=== PATIENT | male | born 1990 | race Caucasian/White ===

== ENCOUNTER 2019-10-01 18:36 | Emergency (ER) | payer OTHER, SELFPAY ==
--- NOTE | ~2019-10-01 | XR_ITS ---
[[id number] ] INDICATION: Left rib pain after recent fall TECHNIQUE: Frontal projection of the upper left ribs, frontal projection of the lower left ribs, obli que projection of all the left ribs, frontal inspiratory chest x-ray for interpretation. FINDINGS: There are no displaced rib fractures identified. There are no soft tissue abnormality see n. The lungs are clear. There is levoscoliosis of the lower thoracic spine. IMPRESSION: 1:No displaced rib fractures. Reviewed, dictated and finalized at location A.
[2019-10-01 18:46] VITALS: BP 123/71; PULSE 66; RESP 16; TEMP 37.1; O2SAT 99
--- NOTE | 2019-10-01 19:04 | ED.GENADULT ---
HPI - General Adult General Chief complaint: Trauma Stated complaint: left rib pain Time Seen by Provider: 10/01/19 19:04 Source: patient Mode of arrival: ambulatory Limitations: no limitations History of Present Illness HPI narrative: Gary Manning is a 29 yo Mlae with a PMH of GERD , depression, fell getting into tub and fell hitting L side onto edge of tub POA.States pain is 7/10 with movement, 3/10 if sitting still. Related Data Home Medications Medication Instructions Recorded Confirmed albuterol sulfate [ProAir HFA] INHALATION 10/01/19 cetirizine mg 10/01/19 omeprazole 10/01/19 sertraline mg 10/01/19 Allergies Allergy/AdvReac Type Severity Reaction Status Date / Time cefaclor Allergy Mild Verified 11/25/18 11:03 Review of Systems Review of Systems: Narrative: CONSTITUTIONAL: Denies fever, chills, sweats. EYES: Denies visual changes, redness, discharge. ENT: Denies rhinorrhea, congestion, sore throat, otalgia. CARDIOVASCULAR: Denies chest pain, palpitations, edema. RESPIRATORY: Denies dyspnea, wheezing, cough-pain in left chest wall, anterior and posterior GASTROINTESTINAL: Denies abdominal pain, nausea, vomiting, diarrhea. GENITOURINARY: Denies dysuria, hematuria, abnormal discharge SKIN: Denies rash or itching. NEUROLOGIC: Denies numbness, or focal weakness. PSYCHIATRIC: Denies anxiety or depression. PMFSH Past Medical History Medical History Patient denies medical problems Family History Family History Other High cholesterol Social History Social History Smoking status: Former smoker Alcohol intake: current Substance use type: marijuana Comments At time of signature, I agree with nursing past medical, surgical, social and family history. There is no relevant family history pertinent to the presenting complaint. Exam Narrative: Exam Narrative: GENERAL: This is a well-nourished, well-developed patient, in moderate distress. HEAD: normocephalic, atraumatic. EYES: PERRL. Sclera clear/white. Vision is grossly intact. EARS: External ears normal, . Hearing grossly intact. NOSE: External nose normal without nasal discharge, nares without redness, no rhinorrhea. THROAT: Mucous membranes moist, NECK: Neck supple, non-tender Chest chest wall tenderness, anterior ribs 4 5 posterior same location, although inflation heard in all carrero CARDIOVASCULAR: Regular rate and rhythm without murmurs, gallops, or rubs. RESPIRATORY: Clear to auscultation. Breath sounds equal bilaterally. No wheezes, rales, or rhonchi. GASTROINTESTINAL: Abdomen soft, SKIN: warm, intact with no suspicious lesions or rash, good texture and turgor. NEURO: awake, alert, and oriented to person, place and time. There were no obvious focal neurologic abnormalities. Steady gait EXTREMITIES: Normal range of motion. BACK: Nontender without deformity Course Course Emergency Course: X-ray of chest left ribs- results: no displaced rib fractures, incidental finding of levoscoliosis of lower thoracic spine Toradol 60 mg IM for pain Muscle relaxant and high-dose ibuprofen; patient to attempt deep breathing; no active sports or contact until ribs are feeling back to normal Follow-up with PCP Vital Signs Vital signs: Vital Signs Temperature 98.8 F 10/01/19 18:46 Pulse Rate 66 10/01/19 18:46 Respiratory Rate 16 10/01/19 18:46 Blood Pressure 123/71 10/01/19 18:46 Pulse Oximetry 99 10/01/19 18:46 Temperature 98.8 F 10/01/19 18:46 Pulse Rate 66 10/01/19 18:46 Respiratory Rate 16 10/01/19 18:46 Blood Pressure 123/71 10/01/19 18:46 Pulse Oximetry 99 10/01/19 18:46 Medical Decision Making Differential Diagnosis Differential Diagnosis: Rib fracture versus rib contusion versus puncture of lung Vital Signs Vital S
[2019-10-01] MEDS: KETOROLAC (*BKC) 60 MG/2 ML VIAL IM (19:15)
== END 2019-10-01 19:52 | disposition home or self-care (01) ==
PROVIDERS: Emergency Provider Nurse Practitioner
DX: S20.212A Contusion of left front wall of thorax, initial encounter (principal); W19.XXXA Unspecified fall, initial encounter; K21.9 Gastro-esophageal reflux disease without esophagitis; F32.9 Major depressive disorder, single episode, unspecified; Z87.891 Personal history of nicotine dependence; F12.90 Cannabis use, unspecified, uncomplicated
CPT/HCPCS: 71101; 96372; 99213; G0463; J1885

== ENCOUNTER 2019-10-19 18:48 | Emergency (ER) | payer OTHER, SELFPAY ==
--- NOTE | ~2019-10-19 | XR_ITS ---
EXAMINATION: XR chest 2V 10/19/2019 19:18 INDICATION: Right-sided chest pain PROCEDURE: 2 view chest COMPARISON: 03/06/2019 FINDINGS: The lungs are clear. The cardiomediastinal silhouette is within normal limits. There are no pleural effusions. There is no pneumothorax suspected. IMPRESSION: 1: NO ACUTE CARDIOPULMONARY DISEASE. Reviewed, dictated and finalized at location A.
--- NOTE | 2019-10-19 18:57 | ED.GENADULT ---
HPI - General Adult General Chief complaint: Chest Pain Stated complaint: chest pains Time Seen by Provider: 10/19/19 18:57 Source: patient Mode of arrival: ambulatory Limitations: no limitations History of Present Illness HPI narrative: 29-year-old male patient presents to the [facility] with complaints of chest tightness to his upper chest that radiates into the neck. Patient states that this started after he got off work today about 430 5:00. Patient states that he went out to eat with his family and states he really did not eat much due to the chest discomfort. Patient states that the chest pain is somewhat intermittent but has been constant for the past hour or so. Patient states he does have slight shortness of breath. Patient states that he does vape. Patient states he has been having some headaches and lightheadedness. Patient states he did work outside today but today was the first time he if he is worked outside in a couple of weeks. Patient denies any nausea, vomiting or diarrhea. Denies any fevers. Denies any coughing. Patient states that he did fall in the shower on September 30 and had chest x-rays done at that time. Patient states he did follow-up with his doctor because he continues to have some left lower rib pain. The x-rays at that time did not show any fractures. Related Data Home Medications Medication Instructions Recorded Confirmed albuterol sulfate [ProAir HFA] INHALATION 10/01/19 cetirizine mg 10/01/19 omeprazole 10/01/19 sertraline mg 10/01/19 Allergies Allergy/AdvReac Type Severity Reaction Status Date / Time cefaclor Allergy Mild Verified 11/25/18 11:03 Review of Systems Review of Systems: Narrative: CONSTITUTIONAL: Denies fever, chills, or sweats. EYES: Denies visual changes, redness, or discharge. ENT: Denies rhinorrhea, congestion, sore throat, or otalgia. CARDIOVASCULAR: Positive upper chest pain, denies palpitations, or edema. RESPIRATORY: Denies cough, positive dyspnea. GASTROINTESTINAL: Denies abdominal pain, nausea, vomiting, or diarrhea. GENITOURINARY: Denies dysuria or hematuria. SKIN: Denies rash or itching. MUSCULOSKELETAL: Denies back pain, joint pain, or myalgia. NEUROLOGIC: Positive headache, denies numbness, or weakness. Positive lightheadedness PSYCHIATRIC: Denies anxiety or depression. PMFSH Past Medical History Medical History (Updated 10/19/19 @ 19:32 by CINDY Cherry) Anxiety GERD (gastroesophageal reflux disease) Hypertension Panic attacks Surgical History Surgical History History of tonsillectomy Family History Family History Other High cholesterol Social History Social History (Updated 10/19/19 @ 19:15 by CINDY Cherry) Smoking status: Current every day smoker Tobacco type: e-cigarettes/vaping Alcohol intake: current Substance use type: marijuana Comments At the time of my signature I agree with nursing past medical history, surgical, social, and family history. There is no relevant family history pertinent to the presenting complaint. Exam Narrative: Exam Narrative: GENERAL: Well-appearing, well-nourished, and in no acute distress. HEAD: Normocephalic, atraumatic. EYES: PERRLA and EOMI. ENT: Nares clear, no rhinorrhea or epistaxis. Mucous membranes moist. NECK: Supple. No lymphadenopathy CHEST: Clear to auscultation. No respiratory distress. Patient still has slight tenderness noted to the anterior 11th and 12th rib on the left side HEART: Regular rate and rhythm. No murmur heard. Normal peripheral pulses. ABDOMEN: Soft, nontender, nondistended, normal active bowel sounds. EXTREMITIES: Normal range of motion. No edema. SKIN: Warm, dry, no rash. NEURO: No focal deficits. Alert and oriented x3. Course Reevaluation(s) Reevaluation #1: Discussed with patient that his x-ray is clear and his EKG is negative
[2019-10-19 19:05] VITALS: BP 138/84; PULSE 81; RESP 16; TEMP 37.1; O2SAT 98
--- NOTE | 2019-10-19 19:09 | ECG_ITS ---
Measurements Intervals [place] Rate: 78 P: 9 MT: 176 QRS: 4 QRSD: 97 T: 14 QT: 367 QTc: 420 Interpretive Statements SINUS RHYTHM NORMAL ECG Electronically Signed On 10-20-2019 6:51:54 CDT by Olvin Smith D.O.
== END 2019-10-19 19:34 | disposition short-term general hospital (02) ==
PROVIDERS: Emergency Provider Nurse Practitioner Family; PCP Family Medicine
DX: R07.89 Other chest pain (principal); R06.02 Shortness of breath; F17.200 Nicotine dependence, unspecified, uncomplicated
CPT/HCPCS: 71046; 93005; 99213; G0463

== ENCOUNTER 2019-10-19 19:44 | Emergency (ER) | payer OTHER, SELFPAY ==
[2019-10-19 19:47] VITALS: BP 133/80; PULSE 79; RESP 16; TEMP 37.2; O2SAT 100
--- NOTE | 2019-10-19 19:53 | ECG_ITS ---
Measurements Intervals [place] Rate: 73 P: 44 MT: 196 QRS: 18 QRSD: 100 T: 26 QT: 371 QTc: 411 Interpretive Statements SINUS RHYTHM EARLY PRECORDIAL R/S TRANSITION BORDERLINE ECG Electronically Signed On 10-20-2019 6:49:46 CDT by Olvin Smith D.O.
[2019-10-19 19:56] VITALS: PULSE 80
[2019-10-19 20:05] LABS: Basophils Percent Auto 0.3 % (0.2-1.2); Eosinophils Percent Auto 0.2 % (0-4.4); Hemoglobin 12.7 g/dL (14.0-18.0); Immature Granulocyte Absolute 0.04 K/mm3 (0.00-0.031); Immature Granulocyte Percent A 0.3 % (0-0.5); Lymphocytes Absolute Auto 1.83 K/mm3 (0.9-3.2); Lymphocytes Percent Auto 13.8 % (18.3-44.2); Mean Corpuscular HGB Conc 34.3 g/dl (32-36); Mean Corpuscular Hemoglobin 30.3 pg (26-34); Mean Corpuscular Volume 88.3 fl (80-100); Mean Platelet Volume 9.4 fl (7.4-10.4); Monocytes Absolute Auto 0.8 K/mm3 (0.1-0.6); Monocytes Percent Auto 5.8 % (2.6-8.5); Neutrophils Absolute Auto 10.6 K/mm3 (1.3-6.7); Neutrophils Percent Auto 79.6 % (45.5-73.1); Platelet Count Result 248 k/mm3 (150-375); Red Blood Count 4.19 M/mm3 (4.6-6.20); Red Cell Distribution Width 11.9 % (11.5-14.5); White Blood Count 13.3 K/mm3 (4.5-10.0)
[2019-10-19] MEDS: ASPIRIN 81 MG CHEWABLE TABLET 324 MG PO (20:06)
[2019-10-19 20:12] VITALS: BP 126/79; PULSE 72; RESP 15; O2SAT 96
[2019-10-19 20:15] LABS: INR 1.1; Prothrombin Time 13.7 Seconds (11.1-14.7)
[2019-10-19 20:16] VITALS: O2SAT 97
[2019-10-19 20:16] LABS: Partial Thromboplastin Time 30.8 SECONDS (22.3-36.8)
[2019-10-19 20:17] LABS: Anion Gap 15.7 mmol/L (7-16); Blood Urea Nitrogen 15 mg/dL (9-20); Calcium 9.6 mg/dL (8.4-10.2); Carbon Dioxide 25 mmol/L (22-30); Chloride 102 mmol/L (98-107); Estimated CRCL calculation 121 ml/min; Estimated Glomerular Filt Rate > 60; Glucose 101 mg/dL (75-110); Potassium 3.7 mmol/L (3.4-5.0); Sodium 139 mmol/L (137-145)
--- NOTE | 2019-10-19 20:29 | ED.CHESTPAIN ---
HPI - Chest Pain General Chief Complaint: Chest Pain Stated Complaint: chest pain Time Seen by Provider: 10/19/19 20:28 History of Present Illness HPI narrative: Mild chest pressure for a few weeks. Associated with occasional SOB. this afternoo develop[ed anterior neck pain and aching pain in the shoulders. No fever, palpitations, dizziness, ear pain, sinus pain. seen at urgent care and had negative chest x-ray and normal EKG Related Data Home Medications Medication Instructions Recorded Confirmed omeprazole 10/01/19 sertraline mg 10/01/19 Allergies Allergy/AdvReac Type Severity Reaction Status Date / Time cefaclor Allergy Mild Unknown Verified 10/19/19 19:52 Review of Systems Review of Systems: All systems reviewed & are unremarkable except as noted in HPI and below Constitutional: Constitutional: Denies chills and Denies fever(s) ENT: Denies nasal congestion and Denies sore throat Cardiovascular: Cardiovascular: Reports chest pain Respiratory: Respiratory: Denies cough and Reports dyspnea Gastrointestinal: Gastrointestinal: Denies abdominal pain, Denies nausea and Denies vomiting Musculoskeletal: Musculoskeletal: Denies back pain [facility] Past Medical History Medical History Anxiety GERD (gastroesophageal reflux disease) Hypertension Panic attacks Surgical History Surgical History History of tonsillectomy Family History Family History Other High cholesterol Social History Social History Smoking status: Current every day smoker Tobacco type: e-cigarettes/vaping Alcohol intake: current Substance use type: marijuana Exam Const: General: healthy appearing, no acute distress and alert Orientation/consciousness: patient oriented x3 HENMT: Ears: external ears normal and TM's normal bilaterally Face and sinus: sinuses nontender Eyes: Pupils: Equal, round and reactive pupils present Neck: Neck: lymphadenopathy Chest: Chest palpation & inspection: no tenderness Resp: Effort & Inspection: normal respiratory effort Auscultation: clear to auscultation bilaterally, no rales, no rhonchi and no wheezes Cardio: Jugular venous distension: no JVD Rate: regular rate Rhythm: regular rhythm Heart sounds: no murmurs GI: Inspection: non-distended GI Palp: Yes Soft to palpation and No Tenderness to palpation present (GI) Skin: General skin exam: normal color Neuro: General: patient oriented x3 and moves all extremities Speech: normal speech Extrem: General: no edema Psych: Appearance: well kempt Affect: normal affect Course Vital Signs Vital signs: Vital Signs Temperature 37.2 C 10/19/19 19:47 Pulse Rate 79 10/19/19 19:47 Respiratory Rate 16 10/19/19 19:47 Blood Pressure 133/80 10/19/19 19:47 Pulse Oximetry 100 10/19/19 19:47 Temperature 37.2 C 10/19/19 19:47 Pulse Rate 72 10/19/19 22:16 Respiratory Rate 15 10/19/19 22:16 Blood Pressure 100/80 10/19/19 22:16 Pulse Oximetry 96 10/19/19 22:16 MDM - Chest Pain Lab Data Attestation: I reviewed the patient's lab results. Result diagrams: 10/19/19 20:00 10/19/19 20:00 Labs: Lab Results 10/19/19 10/19/19 10/19/19 Range/Units 20:00 20:00 20:00 WBC 13.3 H (4.5-10.0) K/mm3 RBC 4.19 L (4.6-6.20) M/mm3 Hgb 12.7 L (14.0-18.0) g/dL Hct 37.0 L (42.0-52.0) % MCV 88.3 (80-100) fl MCH 30.3 (26-34) pg MCHC 34.3 (32-36) g/dl RDW 11.9 (11.5-14.5) % Plt Count 248 (150-375) k/mm3 MPV 9.4 (7.4-10.4) fl Immature Gran % (Auto) 0.3 (0-0.5) % Neut % (Auto) 79.6 H (45.5-73.1) % Lymph % (Auto) 13.8 L (18.3-44.2) % [place] % (Auto) 5.8 (2.6-8.5) % Eos % (Auto) 0.2 (0-4.4) %
[2019-10-19 20:32] LABS: Troponin I < 0.012 ng/mL (0.000-0.034)
[2019-10-19 21:00] VITALS: BP 125/78; PULSE 71; RESP 12; O2SAT 95
[2019-10-19] MEDS: KETOROLAC 30 MG/ML VIAL (*BKC) IV PUSH (21:16)
--- NOTE | 2019-10-19 21:38 | PC.NURSE ---
Pt complained of midsternal chest pain that radiates to the right side of chest, stating it felt like light pressure earlier throughout the day while at work, but later feeling like sharp stabbing pain that radiated to both sides of his neck. He states when the pain in the sides of his neck are felt he also feels as though he cant swallow. Pt stated he tried to rest at home after going to have dinner, which he couldn't eat all his meal but the sharp pain gotten worst. Pt also states his shoulders are feeling tight. made aware.
--- NOTE | 2019-10-19 21:47 | PC.NURSE ---
Pt currently playing on cellphone, no distress noted.
--- NOTE | 2019-10-19 22:14 | PC.NURSE ---
Pt states his pain has slowed down some, its not real pain right now i just want to go home and rest. Pt states he'll be calling his father in law tomorrow in order to not go into work. Pt refused need for work note.
[2019-10-19 22:16] VITALS: BP 100/80; PULSE 72; RESP 15; O2SAT 96
== END 2019-10-19 22:05 | disposition home or self-care (01) ==
PROVIDERS: Emergency Provider Emergency Medicine; PCP Family Medicine
DX: B34.9 Viral infection, unspecified (principal); K21.9 Gastro-esophageal reflux disease without esophagitis; F41.9 Anxiety disorder, unspecified; I10 Essential (primary) hypertension; F17.290 Nicotine dependence, other tobacco product, uncomplicated; R94.31 Abnormal electrocardiogram [ECG] [EKG]
CPT/HCPCS: 36415; 71046; 80048; 84484; 85025; 85610; 85730; 93005; 96374; 99284; A9270; J1885

== ENCOUNTER 2019-12-10 11:34 | Emergency (ER) | payer OTHER, SELFPAY ==
[2019-12-10 11:43] VITALS: BP 128/79; PULSE 76; RESP 16; TEMP 37; O2SAT 99
--- NOTE | 2019-12-10 12:02 | ED.DENTAL ---
HPI - Dental/Oral General Chief complaint: Dental/Oral Stated complaint: possible infected tooth Time Seen by Provider: 12/10/19 11:53 Source: patient and RN notes reviewed Mode of arrival: ambulatory Limitations: no limitations History of Present Illness HPI Narrative: Patient presents today complaining of possible infection to his right upper gumline. He had a molar extracted 3 days ago by an oral surgeon. He has been noting small amounts of blood that have continued to be active, causing some mild nausea. He went up to his dentist office, they stated they were understaffed, his dentist was not in, and they were unable to see him today. They made an appointment for him in 3 days to come back. He denies any pain or purulent discharge. He has been rinsing with salt water. He does not smoke, but does vape. MD Complaint: tooth pain Related Data Home Medications Medication Instructions Recorded Confirmed omeprazole 20 mg DAILY 10/01/19 12/10/19 sertraline 25 mg DAILY 10/01/19 12/10/19 buspirone 10 mg BID PRN 12/10/19 12/10/19 Allergies Allergy/AdvReac Type Severity Reaction Status Date / Time cefaclor Allergy Mild Unknown Verified 12/10/19 11:53 Review of Systems Review of Systems: Narrative: CONSTITUTIONAL: Denies body aches, fever, chills, or sweats. EYES: Denies visual changes, redness, or discharge. ENT: Denies rhinorrhea, congestion, sore throat, or otalgia. Pain at the gumline CARDIOVASCULAR: Denies chest pain, palpitations, or edema. RESPIRATORY: Denies cough or dyspnea. GASTROINTESTINAL: Denies abdominal pain, nausea, vomiting, or diarrhea. GENITOURINARY: Denies dysuria or hematuria. SKIN: Denies rash, itching, or wounds. MUSCULOSKELETAL: Denies back pain, joint pain, or myalgia. NEUROLOGIC: Denies headache, numbness, tingling, or weakness. PSYCH: Denies depression or anxiety. [facility] Social History Social History Smoking status: Current every day smoker Tobacco type: e-cigarettes/vaping Alcohol intake: current Substance use type: marijuana Gender identity (if verbalized by the patient): Male Comments At time of signature, I have reviewed and agree with nursing past medical, surgical, social and family history unless otherwise noted. Please see nursing chart for further information. There is no relevant family history pertinent to the presenting complaint Exam Narrative: Exam Narrative: GENERAL: Well-appearing, well-nourished, and in no acute distress. HEAD: Normocephalic, atraumatic. EYES: EOMI. No redness or drainage. Conjunctivae normal. ENT: Mucous membranes pink and moist. Throat normal. Uvula midline. #2 was extracted. Some surrounding edema noted. No obvious erythema noted. No purulent drainage or material noted. No obvious signs of infection noted. Scant amount of bright red blood on gauze when blotted. No facial swelling noted. No dry socket noted. NECK: Normal AROM. CHEST: No respiratory distress. EXTREMITIES: Normal range of motion. No edema. SKIN: Warm, dry, no rash. Capillary refill normal. Normal skin turgor. NEURO: No focal deficits. Alert and oriented x3. Gait steady. PSYCH: Normal affect. No signs of depression or anxiety. Course Vital Signs Vital signs: Vital Signs Temperature 98.6 F 12/10/19 11:43 Pulse Rate 76 12/10/19 11:43 Respiratory Rate 16 12/10/19 11:43 Blood Pressure 128/79 12/10/19 11:43 Pulse Oximetry 99 12/10/19 11:43 Temperature 98.6 F 12/10/19 11:43 Pulse Rate 76 12/10/19 11:43 Respiratory Rate 16 12/10/19 11:43 Blood Pressure 128/79 12/10/19 11:43 Pulse Oximetry 99 12/10/19 11:43 Reviewed. Pt has been instructed to follow up with his PCP regarding his elevated blood pressure today. MDM - Dental/Oral Differential Diagnosis Differential diagnosis: Likely gingival abscess and other (post op infection, post op bleeding, dry socket) Critical C
== END 2019-12-10 12:05 | disposition home or self-care (01) ==
PROVIDERS: Emergency Provider Nurse Practitioner; PCP Family Medicine
DX: K91.840 Postprocedural hemorrhage of a digestive system organ or structure following a digestive system procedure (principal); F17.200 Nicotine dependence, unspecified, uncomplicated; K21.9 Gastro-esophageal reflux disease without esophagitis; F41.9 Anxiety disorder, unspecified; F32.9 Major depressive disorder, single episode, unspecified
CPT/HCPCS: 99211; G0463

== ENCOUNTER 2022-06-04 15:37 | Emergency (ER) | payer OTHER, SELFPAY ==
[2022-06-04 15:53] VITALS: BP 121/71; PULSE 63; RESP 18; TEMP 36.6; O2SAT 100
--- NOTE | 2022-06-04 16:06 | ED.GENADULT ---
HPI - General Adult General Chief complaint: Upper Respiratory Infection Stated complaint: lt bicep,numbness in tongue and throat Time Seen by Provider: 06/04/22 16:06 Source: patient Mode of arrival: ambulatory Limitations: no limitations History of Present Illness HPI narrative: 31 yo M presents with c/o intermittent pain to L bicep that makes him feel anxious and lightheaded and then causes numbness to L side of tongue and throat. This has happened 3 times. Three months ago then twice in the last 2 wks. Lasts only a few minutes. No symptoms now. Called his PCP office and was told to get an eye exam. Pt states he is not having any eye symptoms. Stating that he would really like some type of scan to make sure everything is ok . All systems reviewed and negative except as noted above. Related Data Home Medications Medication Instructions Recorded Confirmed omeprazole 20 mg capsule,delayed 20 mg PO DAILY 10/01/19 06/04/22 release sertraline 25 mg tablet 25 mg DAILY 10/01/19 06/04/22 atorvastatin 10 mg tablet 10 mg PO HS 06/04/22 06/04/22 famotidine 40 mg tablet 40 mg PO HS 06/04/22 06/04/22 Allergies Allergy/AdvReac Type Severity Reaction Status Date / Time cefaclor AdvReac Mild Hives Verified 06/04/22 15:51 Review of Systems Review of Systems: CONSTITUTIONAL: Denies fever, chills, or sweats. EYES: Denies visual changes, redness, or discharge. ENT: Denies rhinorrhea, congestion, sore throat, or otalgia. CARDIOVASCULAR: Denies chest pain, palpitations, or edema. RESPIRATORY: Denies cough or dyspnea. GASTROINTESTINAL: Denies abdominal pain, nausea, vomiting, or diarrhea. GENITOURINARY: Denies dysuria or hematuria. SKIN: Denies rash or itching. MUSCULOSKELETAL: Denies back pain, joint pain, or myalgia. Reports L bicep pain today that has resolved. NEUROLOGIC: Denies headache, or weakness. Reports numbness to L side tongue and throat. PSYCHIATRIC: Denies anxiety or depression. All other systems reviewed are negative, except as documented in HPI. [facility] Past Medical History Medical History (Updated 06/04/22 @ 16:25 by Daksha Verdin NP) Anxiety GERD (gastroesophageal reflux disease) Hypertension Panic attacks Surgical History Surgical History History of tonsillectomy Family History Family History Other High cholesterol Social History Social History Smoking status: Current every day smoker Tobacco type: e-cigarettes/vaping Alcohol intake: current Substance use type: marijuana Gender identity (if verbalized by the patient): Male Comments At time of signature, agree with nursing past medical, surgical, social and family history. There is no relevant family history pertinent to the presenting complaint. Exam Narrative: GENERAL: This is a well-nourished, well-developed patient, in no apparent distress. HEAD: normocephalic, atraumatic. EYES: PERRL. Sclera clear/white. Vision is grossly intact. EARS: External ears normal, auditory canals clear and without drainage, TMs normal without perforation. Hearing grossly intact. NOSE: External nose normal with no obvious nasal discharge, nares without redness, no rhinorrhea. THROAT: Mucous membranes moist, posterior pharynx clear. NECK: Neck supple, non-tender without lymphadenopathy, masses or thyromegaly. CARDIOVASCULAR: Regular rate and rhythm without murmurs, gallops, or rubs. RESPIRATORY: Clear to auscultation. Breath sounds equal bilaterally. No wheezes, rales, or rhonchi. SKIN: warm, Dry, intact with no suspicious lesions or rash, good texture and turgor. NEURO: awake, alert, and oriented to person, place and time. There were no obvious focal neurologic abnormalities. EXTREMITIES: No joint tenderness, effusion, or edema noted. Course Course Level of Care: Expres
== END 2022-06-04 16:27 | disposition home or self-care (01) ==
PROVIDERS: Emergency Provider Nurse Practitioner Family; PCP Family Medicine
DX: R20.0 Anesthesia of skin (principal); K21.9 Gastro-esophageal reflux disease without esophagitis; I10 Essential (primary) hypertension; F41.9 Anxiety disorder, unspecified; F41.0 Panic disorder [episodic paroxysmal anxiety]; F17.290 Nicotine dependence, other tobacco product, uncomplicated; F12.90 Cannabis use, unspecified, uncomplicated
CPT/HCPCS: 99211; G0463

== ENCOUNTER 2023-10-29 21:39 | Emergency (ER) | payer OTHER, SELFPAY ==
--- NOTE | ~2023-10-29 | XR_ITS ---
XR chest 2V Ordering provider: Darwin Medina MD History: 33 years Male with . CP . Comparison: October 19, 2019 FINDINGS: MEDIASTINUM: The cardiac silhouette is not enlarged. LUNGS: No infiltrates, effusions or pneumothorax. OTHER: No free air under the diaphragm. Degenerative changes of the spine with S-shaped scoliosis. IMPRESSION: No acute cardiopulmonary pathology. Reviewed, dictated and finalized at location A.
[2023-10-29 21:41] VITALS: BP 146/86; PULSE 55; RESP 14; TEMP 36.4; O2SAT 100
--- NOTE | 2023-10-29 21:42 | ECG_ITS ---
Test Date: 2023-10-29 21:45:29 Measurements Intervals [place] Rate: 54 P: 30 AL: 190 QRS: -2 QRSD: 100 T: 3 QT: 403 QTc: 383 Interpretive Statements SINUS BRADYCARDIA OTHERWISE NORMAL ECG No previous ECG available for comparison Electronically Signed On 10-30-2023 07:20:27 CDT by Leandro Hancock M.D.
[2023-10-29 21:55] LABS: Basophils Percent Auto 0.2 % (0.2-1.2); Eosinophils Absolute Auto 0.1 K/mm3 (0-0.3); Eosinophils Percent Auto 1.3 % (0-4.4); Hematocrit 36.5 % (42.0-52.0); Hemoglobin 12.4 g/dL (14.0-18.0); Immature Granulocyte Absolute 0.02 K/mm3 (0.00-0.031); Immature Granulocyte Percent A 0.2 % (0-0.5); Lymphocytes Absolute Auto 3.02 K/mm3 (0.9-3.2); Lymphocytes Percent Auto 35.4 % (18.3-44.2); Mean Corpuscular Hemoglobin 30.9 pg (26-34); Mean Platelet Volume 9.4 fl (7.4-10.4); Monocytes Absolute Auto 0.5 K/mm3 (0.1-0.6); Monocytes Percent Auto 5.7 % (2.6-8.5); Neutrophils Absolute Auto 4.9 K/mm3 (1.3-6.7); Neutrophils Percent Auto 57.2 % (45.5-73.1); Platelet Count Result 231 k/mm3 (150-375); Red Blood Count 4.01 M/mm3 (4.6-6.20); Red Cell Distribution Width 11.7 % (11.5-14.5); White Blood Count 8.5 K/mm3 (4.5-10.0)
[2023-10-29 22:05] LABS: Prothrombin Time 13.5 Seconds (11.1-14.7)
[2023-10-29 22:06] LABS: Partial Thromboplastin Time 31.6 Seconds (22.3-36.8)
[2023-10-29 22:07] LABS: Alanine Aminotransferase 25 U/L (6-50); Albumin Level 4.9 g/dL (3.5-5.1); Alkaline Phosphatase 89 U/L (38-126); Anion Gap 14 mmol/L (4-12); Aspartate Amino Transferase 26 U/L (17-59); Bilirubin,Total 0.4 mg/dL (0.2-1.3); Blood Urea Nitrogen 10 mg/dL (9-20); Calcium 9.3 mg/dL (8.4-10.2); Carbon Dioxide 22 mmol/L (22-30); Chloride 103 mmol/L (98-107); Estimated CRCL calculation 118 ml/min; Estimated Glomerular Filt Rate > 60; Glucose 100 mg/dL (65-110); Lipase 36 U/L (23-300); Potassium 3.7 mmol/L (3.4-5.0); Sodium 139 mmol/L (137-145)
[2023-10-29 22:17] LABS: Troponin I < 0.012 ng/mL (0.000-0.034)
[2023-10-29 23:52] VITALS: PULSE 54
[2023-10-29 23:53] VITALS: O2SAT 96
[2023-10-29 23:54] VITALS: BP 116/76; PULSE 46; RESP 14; O2SAT 98
--- NOTE | 2023-10-30 00:39 | ECG_ITS ---
Test Date: 2023-10-30 00:49:53 Measurements Intervals [place] Rate: 47 P: 32 WI: 192 QRS: -1 QRSD: 100 T: 5 QT: 448 QTc: 398 Interpretive Statements SINUS BRADYCARDIA WITH SINUS ARRHYTHMIA OTHERWISE NORMAL ELECTROCARDIOGRAM Compared to ECG 10/29/2023 21:45:29 No significant changes Electronically Signed On 10-30-2023 07:22:51 CDT by Leandro Hancock M.D.
[2023-10-30 01:15] LABS: Troponin I < 0.012 ng/mL (0.000-0.034)
--- NOTE | 2023-10-30 01:19 | ED.CHESTPAIN ---
HPI - Chest Pain General Chief Complaint: Chest Pain Stated Complaint: chest pain, nausea, dizziness Time Seen by Provider: 10/30/23 01:04 History of Present Illness HPI narrative: 33-year-old male with history of hyperlipidemia and anxiety presents to the emergency department with complaints of chest tightness and shortness of breath that started today approximately 1 week of nausea and lightheadedness. Patient denies aggravating or alleviating factors. States the symptoms are intermittent but cannot identify any triggers. he describes his chest discomfort as a pressure that goes from the bottom of his throat and makes a J to the inferior aspect of his left chest. He denies cough or congestion, fever, hemoptysis, recent surgeries or hospitalizations, history of VTE. He does state that he feels anxious. Denies personal or family history of cardiac disease. Related Data Home Medications Medication Instructions Recorded Confirmed omeprazole 20 mg capsule,delayed 20 mg PO DAILY 10/01/19 06/04/22 release sertraline 25 mg tablet 25 mg DAILY 10/01/19 06/04/22 atorvastatin 10 mg tablet 10 mg PO HS 06/04/22 06/04/22 famotidine 40 mg tablet 40 mg PO HS 06/04/22 06/04/22 Allergies Allergy/AdvReac Type Severity Reaction Status Date / Time cefaclor AdvReac Mild Hives Verified 10/29/23 23:55 Review of Systems Review of Systems: All systems reviewed & are unremarkable except as noted in HPI and below PMFSH Past Medical History Medical History (Updated 10/30/23 @ 02:48 by Carlyn Pillai PA-C) Anxiety GERD (gastroesophageal reflux disease) Hypertension Panic attacks Surgical History Surgical History History of tonsillectomy Family History Family History Other High cholesterol Social History Social History Smoking status: Current every day smoker Tobacco type: e-cigarettes/vaping Alcohol intake: current Substance use type: marijuana Gender identity (if verbalized by the patient): Male Exam Narrative: GENERAL: Well-appearing, well-nourished, and in no acute distress. HEAD: Normocephalic, atraumatic. EYES: PERRLA and EOMI. ENT: Nares clear, no rhinorrhea or epistaxis. Mucous membranes moist. NECK: Supple. CHEST: Clear to auscultation. No respiratory distress. No tenderness to chest wall HEART: Regular rate and rhythm. No murmur heard. Normal peripheral pulses. ABDOMEN: Soft, nontender, nondistended, normal active bowel sounds. EXTREMITIES: Normal range of motion. No edema. negative Homans bilaterally SKIN: Warm, dry, no rash. NEURO: No focal deficits. Alert and oriented x3 Course Vital Signs Vital signs: Vital Signs Temperature 97.6 F 10/29/23 21:41 Pulse Rate 55 L 10/29/23 21:41 Respiratory Rate 14 10/29/23 21:41 Blood Pressure 146/86 H 10/29/23 21:41 Pulse Oximetry 100 10/29/23 21:41 Oxygen Delivery Room Air 10/29/23 21:41 Temperature 97.6 F 10/29/23 21:41 Pulse Rate 45 L 10/30/23 02:03 Respiratory Rate 15 10/30/23 02:03 Blood Pressure 104/53 L 10/30/23 02:03 Pulse Oximetry 98 10/30/23 02:03 Oxygen Delivery Room Air 10/29/23 23:53 MDM - Chest Pain MDM Narrative Medical decision making narrative: 33-year-old male hyperlipidemia and anxiety presents to the emergency department for chest pain, shortness of breath, lightheadedness and nausea. See HPI for further history. Triage vitals are significant for bradycardia 55. Exam significant for the above. CBC is without leukocytosis. Hemoglobin is 12.4 which appears to be chronic. Chemistries are unremarkable. Mag normal. EKG shows sinus bradycardia with sinus arrhythmia the rate of 47 ppm, normal [place] interval, normal QRS duration, normal QTC, no ischemic changes. Troponin undetectable x2. He is PERC neg
[2023-10-30 01:21] VITALS: BP 112/69; PULSE 41
[2023-10-30 01:23] VITALS: BP 121/81; PULSE 45
[2023-10-30 01:25] VITALS: BP 115/73; PULSE 60
[2023-10-30 01:35] LABS: Ethanol < 10 mg/dL (<10)
[2023-10-30] MEDS: SODIUM CHLORIDE 0.9% IV 1,000 ML 999 ML IV CONT (02:01)
[2023-10-30] MEDS: LORazepam INJ (*CRX) 2 MG/ML VIAL 0.5 MG IM (02:02)
[2023-10-30 02:03] VITALS: BP 104/53; PULSE 45; RESP 15; O2SAT 98
[2023-10-30] MEDS: ONDANSETRON INJ 4 MG/2 ML VIAL IV PUSH (02:03)
[2023-10-30 02:50] LABS: Amphetamine Screen Urine Negative (Negative); Barbiturate Screen Urine Negative (Negative); Benzodiazepines Screen Urine Negative (Negative); Cannabinoid Screen Urine Negative (Negative); Cocaine Screen Urine Negative (Negative); Methadone Screen Urine Negative (Negative); Opiate Screen Urine Negative (Negative); Phencyclidine Screen Urine Negative (Negative)
== END 2023-10-30 03:00 | disposition home or self-care (01) ==
PROVIDERS: Emergency Medicine; Emergency Provider Physician Assistant; PCP Family Medicine
DX: R07.89 Other chest pain (principal); R00.1 Bradycardia, unspecified; I10 Essential (primary) hypertension; E78.5 Hyperlipidemia, unspecified; K21.9 Gastro-esophageal reflux disease without esophagitis; F41.9 Anxiety disorder, unspecified; F17.290 Nicotine dependence, other tobacco product, uncomplicated; Z79.899 Other long term (current) drug therapy
CPT/HCPCS: 36415; 71046; 80053; 80307; 83690; 83735; 84484; 85025; 85610; 85730; 93005; 96361; 96372; 96374; 99284; J2060; J2405; J7030

== ENCOUNTER 2023-12-31 08:11 | Outpatient (CLI) | payer OTHER, SELFPAY ==
--- NOTE | 2023-12-31 08:13 | EST_ITS ---
Patient Info Name: Gary Manning Age: 33 years : 1990 Gender: Male Ht: 70 in Wt: 240 lbs BSA: 2.36 m2 HR: 55 bpm BP: 113 / 71 mmHg Heart Rhythm: Sinus Rhythm Exam Date: 12/31/2023 8:29 AM Exam Location: Echo Lab Patient Status: Outpatient Admit Date: 12/31/2023 Staff Ordering Physician: Olvin Smith DO Attending Provider: Olvin Smith DO Exercise Technologist: Kelsey Sanchez CT Exercise Physician: Olvin Smith DO Exam Type: CA stress test treadmill Study Info Indications R07.89 - Other chest pain A treadmill exercise stress test was performed. Summary 1. 1. Negative [place] exercise stress test for ischemic ST changes by ECG criteria. 2. 2. Good functional capacity, achieving 12 METs of workload. 3. 3. Appropriate HR response to exercise. 4. 4. Appropriate HR recovery at 1 minute post exercise. 5. 5. No imaging with stress testing. 6. 6. Patient informed of the above results. Protocol: [place] Stress ECG Details Stage: REST Duration (min): 1 min : 0 sec Speed (mph): 0.0 Grade (%): 0 HR (bpm): 54 SBP (mmHg): 113 DBP (mmHg): 71 METS: --- Stage: REST Duration (min): 3 min : 15 sec Speed (mph): 0.0 Grade (%): 0 HR (bpm): 61 SBP (mmHg): 113 DBP (mmHg): 71 METS: --- Stage: REST Duration (min): 12 min : 37 sec Speed (mph): 0.0 Grade (%): 0 HR (bpm): 65 SBP (mmHg): 113 DBP (mmHg): 71 METS: --- Stage: STAGE 1 Duration (min): 1 min : 0 sec Speed (mph): 1.7 Grade (%): 10 HR (bpm): 88 SBP (mmHg): 113 DBP (mmHg): 71 METS: --- Stage: STAGE 1 Duration (min): 2 min : 0 sec Speed (mph): 1.7 Grade (%): 10 HR (bpm): 91 SBP (mmHg): 113 DBP (mmHg): 71 METS: --- Stage: STAGE 1 Duration (min): 3 min : 0 sec Speed (mph): 1.7 Grade (%): 10 HR (bpm): 92 SBP (mmHg): 123 DBP (mmHg): 58 METS: --- Stage: STAGE 2 Duration (min): 1 min : 0 sec Speed (mph): 2.5 Grade (%): 12 HR (bpm): 101 SBP (mmHg): 123 DBP (mmHg): 58 METS: --- Stage: STAGE 2 Duration (min): 2 min : 0 sec Speed (mph): 2.5 Grade (%): 12 HR (bpm): 106 SBP (mmHg): 134 DBP (mmHg): 61 METS: --- Stage: STAGE 2 Duration (min): 3 min : 0 sec Speed (mph): 2.5 Grade (%): 12 HR (bpm): 112 SBP (mmHg): 134 DBP (mmHg): 61 METS: --- Stage: STAGE 3 Duration (min): 1 min : 0 sec Speed (mph): 3.4 Grade (%): 14 HR (bpm): 124 SBP (mmHg): 147 DBP (mmHg): 67 METS: --- Stage: STAGE 3 Duration (min): 2 min : 0 sec Speed (mph): 3.4 Grade (%): 14 HR (bpm): 131 SBP (mmHg): 147 DBP (mmHg): 67 METS: --- Stage: STAGE 3 Duration (min): 3 min : 0 sec Speed (mph): 3.4 Grade (%): 14 HR (bpm): 133 SBP (mmHg): 176 DBP (mmHg): 76 METS: --- Stage: STAGE 4 Duration (min): 1 min : 0 sec Speed (mph): 4.2 Grade (%): 16 HR (bpm): 154 SBP (mmHg): 176 DBP (mmHg): 76 METS: --
== END 2023-12-31 08:12 | disposition home or self-care (01) ==
LOC: ANHCARD 08:12
PROVIDERS: PCP Family Medicine; Visit Provider Internal Medicine Cardiovascular Disease
DX: R07.89 Other chest pain (principal)
CPT/HCPCS: 93017

== ENCOUNTER 2024-01-18 17:52 | Emergency (ER) | payer OTHER, SELFPAY ==
--- NOTE | ~2024-01-18 | XR_ITS ---
XR ankle LT min 3V DATE: 01/18/2024 18:24 INDICATION: Anterior and lateral pain, swelling TECHNIQUE: 4 views COMPARISON: None FINDINGS: No fracture or dislocation of the ankle or disruption of the ankle mortise. No periosteal r eaction or bone destruction. No soft tissue swelling is noted. IMPRESSION: Negative Reviewed, dictated and finalized at location A. IMPRESSION: Negative
[2024-01-18 18:00] VITALS: BP 122/84; PULSE 76; RESP 18; TEMP 36.8; O2SAT 100
--- NOTE | 2024-01-18 18:04 | ED.LOWEXIN ---
HPI - Extremity Injury (Lower) General Chief Complaint: Extremity Injury, Lower Stated Complaint: LT Ankle Injury Time Seen by Provider: 01/18/24 18:04 Source: patient Mode of arrival: ambulatory Limitations: no limitations History of Present Illness HPI Narrative: 33 yo M presents with c/o L ankle pain and swelling. 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 Did not fall completely to the ground. Continue with work and finised around 4pm. Noticed throbbing pain and tightening to L ankle while driving home. Ambulatory with slight limp. range of motion decreased due to pain. Distal neurovascularly intact. All systems reviewed and negative except as noted above. Related Data Home Medications Medication Instructions Recorded Confirmed omeprazole 20 mg capsule,delayed 20 mg PO DAILY 10/01/19 01/18/24 release sertraline 25 mg tablet 25 mg DAILY 10/01/19 01/18/24 famotidine 40 mg tablet 40 mg PO HS 06/04/22 01/18/24 Allergies Allergy/AdvReac Type Severity Reaction Status Date / Time cefaclor Allergy Mild Hives Verified 01/18/24 18:03 Review of Systems Review of Systems: CONSTITUTIONAL: Denies fever, chills, or sweats. EYES: Denies visual changes, redness, or discharge. ENT: Denies rhinorrhea, congestion, sore throat, or otalgia. CARDIOVASCULAR: Denies chest pain, palpitations, or edema. RESPIRATORY: Denies cough or dyspnea. GASTROINTESTINAL: Denies abdominal pain, nausea, vomiting, or diarrhea. GENITOURINARY: Denies dysuria or hematuria. SKIN: Denies rash or itching. MUSCULOSKELETAL: Denies back pain or myalgia. Reports pain and swelling to left ankle. NEUROLOGIC: Denies headache, numbness, or weakness. PSYCHIATRIC: Denies anxiety or depression. All other systems reviewed are negative, except as documented in HPI. [facility]LY [facility] Past Medical History Medical History (Updated 01/18/24 @ 18:46 by Daksha Verdin NP) Anxiety GERD (gastroesophageal reflux disease) Hypertension Panic attacks Surgical History Surgical History History of tonsillectomy Family History Family History Other High cholesterol Social History Social History (Updated 11/19/23 @ 08:58 by Nisha Iraheta [facility]) Smoking status: Former smoker Tobacco type: e-cigarettes/vaping Alcohol intake: current Substance use type: marijuana Do You Feel Safe in your Home?: Yes Lack of Transportation: No Lack of Food: Never True Current Housing: I Have Housing Concerned About Future Housing: No Difficulty Paying Gas/Electric Bills: No Difficulty Paying for Meds: No Currently Unemployed: No Education: High School Diploma/GED Difficulty w/ Childcare or Family Care: No Gender identity (if verbalized by the patient): Male Comments At time of signature, agree with nursing past medical, surgical, social and family history. There is no relevant family history pertinent to the presenting complaint. Exam Narrative: GENERAL: This is a well-nourished, well-developed patient, in no apparent distress. HEAD: normocephalic, atraumatic. EYES: PERRL. Sclera clear/white. Vision is grossly intact. EARS: External ears normal NOSE: External nose normal NECK: Neck supple, non-tender without lymphadenopathy, masses or thyromegaly. CARDIOVASCULAR: Regular rate and rhythm without murmurs, gallops, or rubs. RESPIRATORY: Clear to auscultation. Breath sounds equal bilaterally. No wheezes, rales, or rhonchi. SKIN: warm, Dry, intact with no suspicious lesions or rash, good texture and turgor. NEURO: awake, alert, and oriented to person, place and time. There were no obvious focal neurologic abnormalities. EXTREMITIES: Mild swelling to left ankle. Tenderness to anterior and lateral aspect without deformity. Distal neurovascularly intact. Flexion and extension is decreased due to pain. Course Course Level of Care: Express Care Visit Vital Signs Vital signs: Vital Signs Temperature 36.8 C 01/18/24 18:00 Pulse Rate 76 01/18/24 18:00 Respiratory Rate 18 01/18/24 18:00 Blood Pressure 122/84 01/18/24 18:00 Pulse Oximetry 100 01/18/24 18:00 Oxygen Delivery Room Air 01/18/24 18:00 Temperature 36.8 C 01/18/24 18:00 Pulse Rate 76 01/18/24 18:00 Respiratory Rate 18 01/18/24 18:00 Blood Pressure 122/84 10/27/24 18:00 Pulse Oximetry 100 01/18/24 18:00 Oxygen Delivery Room Air 01/18/24 18:00 Reviewed MDM - Extremity Injury (Lower) MDM Narrative Medical decision making narrative: x-ray negative for fracture. Discussed results with patient. Recommend rice. Recommend follow-up with his primary care physician if pain and swelling not improving. Patient is aware of diagnosis, understands and agrees to treatment plan. Anticipatory guidance given. Patient agrees to follow-up as directed and is aware of reasons to seek care at the emergency department. Portions of this record may have been created with voice recognition software Differential Diagnosis Differential diagnosis: Likely ankle sprain and strain and ankle fracture Imaging Data My impression: Agree with radiologist Radiologist's impression: XR ankle LT min 3V DATE: 01/18/2024 18:24 INDICATION: Anterior and lateral pain, swelling TECHNIQUE: 4 views COMPARISON: None FINDINGS: No fracture or dislocation of the ankle or disruption of the ankle mortise. No periosteal reaction or bone destruction. No soft tissue swelling is noted. IMPRESSION: Negative Discharge Plan Discharge Clinical Impression: Left ankle sprain Qualifiers: Encounter type: initial encounter Patient Disposition: Home, Self-Care Condition: Stable Instructions: Ankle Sprain (DC) Additional Instructions: the x-ray of your left ankle was negative for fracture. Wear Husam wrap to compress swelling and provide support. Apply ice as needed for pain. Take ibuprofen or Tylenol every 6-8 hours as needed for pain. Elevate when at rest. Avoid activities that increase pain. Follow-up with your primary care physician if pain is not improving. Prescriptions: No Action famotidine 40 mg tablet 40 mg PO HS sertraline 25 mg tablet 25 mg DAILY omeprazole 20 mg capsule,delayed release(DR/EC) 20 mg PO DAILY Follow-up/Referrals: Wally,MD Marcelino [Primary Care Provider] - Stand Alone Forms: Work/School Release IP Time of Disposition: 18:45
== END 2024-01-18 18:50 | disposition home or self-care (01) ==
PROVIDERS: Emergency Provider Nurse Practitioner Family; PCP Family Medicine
DX: S93.402A Sprain of unspecified ligament of left ankle, initial encounter (principal); X50.9XXA Other and unspecified overexertion or strenuous movements or postures, initial encounter; Y99.0 Civilian activity done for income or pay; Z87.891 Personal history of nicotine dependence; F12.90 Cannabis use, unspecified, uncomplicated; I10 Essential (primary) hypertension; K21.9 Gastro-esophageal reflux disease without esophagitis; F41.9 Anxiety disorder, unspecified
CPT/HCPCS: 73610; 99213; G0463

== ENCOUNTER 2024-01-31 09:58 | Emergency (ER) | payer OTHER, SELFPAY ==
[2024-01-31 10:08] VITALS: BP 117/67; PULSE 62; RESP 18; TEMP 36.6; O2SAT 100
[2024-01-31 10:09] VITALS: BP 117/67; PULSE 62; RESP 18; TEMP 36.6; O2SAT 100
--- NOTE | 2024-01-31 10:24 | ED.NAVMDI ---
HPI - Nausea/Vomiting/Diarrhea General Chief complaint: Nausea/Vomiting/Diarrhea Stated complaint: Stomach Pain,Diarrhea/Work Note Time Seen by Provider: 01/31/24 10:15 Source: patient Mode of arrival: ambulatory Limitations: no limitations History of Present Illness HPI Narrative: Gary is a 33-year-old male patient presenting to the clinic today with complaints of abdominal cramping, nausea, vomiting, diarrhea that started around midnight this morning. He reports he has had around 5-6 diarrhea stools, some abdominal cramping, and 1 episode vomiting. He denies any blood in his stool. He does not recall eating anything that could have caused his symptoms. States that his child at home has a low-grade fever but thinks he may be teething. Otherwise he denies any sick contacts. He called off from work and is needing a work note. He denies any abdominal pain/cramping at this time and has not had a bowel movement since around 6:00 a.m. this morning. Related Data Home Medications Medication Instructions Recorded Confirmed omeprazole 20 mg capsule,delayed 20 mg PO DAILY 10/01/19 01/31/24 release sertraline 25 mg tablet 25 mg DAILY 10/01/19 01/31/24 famotidine 40 mg tablet 40 mg PO HS 06/04/22 01/31/24 Allergies Allergy/AdvReac Type Severity Reaction Status Date / Time cefaclor Allergy Mild Hives Verified 01/31/24 10:09 Review of Systems Review of Systems: Pertinent positives per HPI. Patient denies any fever, chills, rash, headache, visual changes, dizziness, cough, runny nose, sore throat, shortness of breath, chest pain, palpitations, constipation, or any urinary issues. FOR[facility]LY [facility] Past Medical History Medical History (Updated 01/31/24 @ 10:23 by Robert Nick APRN) Anxiety GERD (gastroesophageal reflux disease) Hypertension Panic attacks Surgical History Surgical History History of tonsillectomy Family History Family History Other High cholesterol Social History Social History (Updated 11/19/23 @ 08:58 by Nisha Iraheta CMA) Smoking status: Former smoker Tobacco type: e-cigarettes/vaping Alcohol intake: current Substance use type: marijuana Do You Feel Safe in your Home?: Yes Lack of Transportation: No Lack of Food: Never True Current Housing: I Have Housing Concerned About Future Housing: No Difficulty Paying Gas/Electric Bills: No Difficulty Paying for Meds: No Currently Unemployed: No Education: High School Diploma/GED Difficulty w/ Childcare or Family Care: No Gender identity (if verbalized by the patient): Male Comments At the time of my signature, I reviewed and agree with the nursing past medical, surgical, social, and family history. There is no relevant family history pertinent to the patient complaint. Exam Narrative: General: Well-developed, well nourished, in no apparent distress. Head: Normocephalic, atraumatic. Cardio: Regular rate and rhythm, s1 and s2 normal, no murmur appreciated. Resp: Clear to auscultation bilaterally, no rhonchi, rales, wheezing or rubs. Abdomen: Soft, pliable, bowel sounds present in all quadrants, non-tender to palpation, no organomegly, no CVAT tenderness. Course Course Emergency Course: Portions of this record may have been created with voice recognition software. Level of Care: Express Care Visit Vital Signs Vital signs: Vital Signs Temperature 36.6 C 01/31/24 10:08 Pulse Rate 62 01/31/24 10:08 Respiratory Rate 18 01/31/24 10:08 Blood Pressure 117/67 01/31/24 10:08 Pulse Oximetry 100 01/31/24 10:08 Oxygen Delivery Room Air 01/31/24 10:08 Temperature 36.6 C 01/31/24 10:09 Pulse Rate 62 01/31/24 10:09 Respiratory Rate 18 01/31/24 10:09 Blood Pressure 117/67 01/31/24 10:09 Pulse Oximetry 100 01/31/24 10:09 Oxygen Delivery Room Air 01/31/24 10:09 Vital signs reviewed MDM - Nausea/Vomiting/Diarrhea MDM Narrative Medical decision making narrative: At the time of visit patient is resting comfortably on the exam table. Patient appears to be nontoxic. Plan: I suspect patient has gastroenteritis. Prescription for Zofran was sent to the pharmacy and discussed use of Imodium as needed as long as there is no blood in his stool. He is afebrile in the clinic today. Does not show any signs of dehydration. He denies any abdominal pain/cramping at this time. States he does have some nausea still. Supportive measures were discussed with the patient and they voiced understanding discharge instructions and agrees to treatment plan. Return precautions reviewed Differential Diagnosis Differential diagnosis: Likely traveler's diarrhea, food poisoning, gastroenteritis, clostridium difficile infection, drug-induced nausea and vomiting, dehydration and other (Gastritis) Discharge Plan Discharge Clinical Impression: Gastroenteritis Patient Disposition: Home, Self-Care Condition: Stable Instructions: Antibiotic Form, Gastroenteritis (ED) Additional Instructions: Take prescription medications only as prescribed-Zofran for nausea Increase fluids and stay well hydrated Tylenol/motrin for pain/fever May take Imodium as needed for diarrhea as long as there is no blood in your stool. BRAT diet for diarrhea Clear liquids x 24 hours then advance as tolerated for nausea/vomiting Go to the ED if you develop a worsening in your condition- high fever not controlled by Tylenol or Motrin, dehydration, weakness, lethargy, shortness of breath, or chest pain. Follow up with your PCP in 3-5 days if symptoms persist. Prescriptions: New ondansetron 4 mg tablet,disintegrating 4 mg PO Q6H PRN (Reason: nausea and vomiting) 3 Days Qty: 12 0RF No Action famotidine 40 mg tablet 40 mg PO HS sertraline 25 mg tablet 25 mg DAILY omeprazole 20 mg capsule,delayed release(DR/EC) 20 mg PO DAILY Follow-up/Referrals: Wally,MD Marcelino [Primary Care Provider] - Stand Alone Forms: Work/School Release IP Time of Disposition: 10:21 Quality NIHSS Nursing Documentation ED NIHSS nursing documentation: reviewed/agree
== END 2024-01-31 10:26 | disposition home or self-care (01) ==
PROVIDERS: Emergency Provider Nurse Practitioner Family; PCP Family Medicine
DX: K52.9 Noninfective gastroenteritis and colitis, unspecified (principal); I10 Essential (primary) hypertension; K21.9 Gastro-esophageal reflux disease without esophagitis; F41.9 Anxiety disorder, unspecified; F12.90 Cannabis use, unspecified, uncomplicated; Z87.891 Personal history of nicotine dependence
CPT/HCPCS: 99213; G0463

== ENCOUNTER 2024-04-02 13:10 | Emergency (ER) | payer OTHER, SELFPAY ==
--- NOTE | ~2024-04-02 | XR_ITS ---
EXAMINATION: XR humerus LT DATE: 04/02/2024 13:55 INDICATION: Left upper arm pain. Fall. TECHNIQUE: 2 views of left humerus on 3 radiographs were obtained. COMPARISON: None. FINDINGS: Alignment is normal. No fracture. Joint spaces are normal. No elbow joint effusion. IMPRESSION: 1. Normal left humerus. Reviewed, dictated and finalized at location A. HING ASSISTANT IMPRESSION: 1. Normal left humerus.
[2024-04-02 13:27] VITALS: BP 110/70; PULSE 64; RESP 16; TEMP 36.6; O2SAT 98
--- NOTE | 2024-04-02 13:41 | ED.FALL ---
HPI - Fall General Chief Complaint: Extremity Injury, Upper Stated Complaint: fall Time Seen by Provider: 04/02/24 13:41 Source: patient Mode of arrival: ambulatory Limitations: no limitations History of Present Illness HPI Narrative: 33-year-old male presents with complaint of pain to left upper arm. 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 Patient states he landed on left arm, pain radiating to left elbow but has full range of motion to left elbow. Distal neurovascularly intact. Did not hit head during follow-up. Was able to complete shift after falling. All Systems reviewed and negative except as noted above. Related Data Home Medications ?Medication ?Instructions ?Recorded ?Confirmed ?Last Taken ?Type omeprazole 20 mg capsule,delayed 20 mg PO DAILY 10/01/19 01/31/24 Unknown History release sertraline 25 mg tablet 25 mg DAILY 10/01/19 01/31/24 Unknown History famotidine 40 mg tablet 40 mg PO HS 06/04/22 01/31/24 Unknown History Allergies Allergy/AdvReac Type Severity Reaction Status Date / Time cefaclor Allergy Mild Hives Verified 04/02/24 13:29 Review of Systems Review of Systems: CONSTITUTIONAL: Denies fever, chills, or sweats. EYES: Denies visual changes, redness, or discharge. ENT: Denies rhinorrhea, congestion, sore throat, or otalgia. CARDIOVASCULAR: Denies chest pain, palpitations, or edema. RESPIRATORY: Denies cough or dyspnea. GASTROINTESTINAL: Denies abdominal pain, nausea, vomiting, or diarrhea. GENITOURINARY: Denies dysuria or hematuria. SKIN: Denies rash or itching. MUSCULOSKELETAL: Denies back pain, joint pain, or myalgia. Reports pain to left upper extremity. NEUROLOGIC: Denies headache, numbness, or weakness. PSYCHIATRIC: Denies anxiety or depression. All other systems reviewed are negative, except as documented in HPI. [facility] Past Medical History Medical History (Updated 04/03/24 @ 00:00 by Background Daemon) Anxiety GERD (gastroesophageal reflux disease) Panic attacks Hypertension Surgical History Surgical History (Reviewed 11/19/23 @ 08:57 by Nisha Iraheta [facility]) History of tonsillectomy Family History Family History (Reviewed 11/19/23 @ 08:57 by Nisha Iraheta [facility]) Other High cholesterol Social History Social History (Updated 11/19/23 @ 08:58 by Nisha Iraheta [facility]) Smoking status: Former smoker Tobacco type: e-cigarettes/vaping Alcohol intake: current Substance use type: marijuana Do You Feel Safe in your Home?: Yes Lack of Transportation: No Lack of Food: Never True Current Housing: I Have Housing Concerned About Future Housing: No Difficulty Paying Gas/Electric Bills: No Difficulty Paying for Meds: No Currently Unemployed: No Education: High School Diploma/GED Difficulty w/ Childcare or Family Care: No Gender identity (if verbalized by the patient): Male Comments At time of signature, agree with nursing past medical, surgical, social and family history. There is no relevant family history pertinent to the presenting complaint. Exam Narrative: GENERAL: This is a well-nourished, well-developed patient, in no apparent distress. HEAD: normocephalic, atraumatic. EYES: PERRL. Sclera clear/white. Vision is grossly intact. EARS: External ears normal NOSE: External nose normal NECK: Neck supple, non-tender without lymphadenopathy, masses or thyromegaly. CARDIOVASCULAR: Regular rate and rhythm without murmurs, gallops, or rubs. RESPIRATORY: Clear to auscultation. Breath sounds equal bilaterally. No wheezes, rales, or rhonchi. SKIN: warm, Dry, intact with no suspicious lesions or rash, good texture and turgor. NEURO: awake, alert, and oriented to person, place and time. There were no obvious focal neurologic abnormalities. EXTREMITIES: Tenderness to left humerus on palpation with mild swelling. Generalized tenderness to left elbow, full range of motion. Distal neurovascularly intact. Course Course Level of Care: Express Care Visit Vital Signs Vital signs: Vital Signs Temperature 36.6 C 04/02/24 13:27 Pulse Rate 64 04/02/24 13:27 Respiratory Rate 16 04/02/24 13:27 Blood Pressure 110/70 04/02/24 13:27 Pulse Oximetry 98 04/02/24 13:27 Oxygen Delivery Room Air 04/02/24 13:27 Temperature 36.6 C 04/02/24 13:27 Pulse Rate 64 04/02/24 13:27 Respiratory Rate 16 04/02/24 13:27 Blood Pressure 110/70 04/02/24 13:27 Pulse Oximetry 98 04/02/24 13:27 Oxygen Delivery Room Air 04/02/24 13:27 Reviewed MDM - Fall MDM Narrative Medical decision making narrative: X-ray left humerus negative for fracture. Patient has full range of motion to left upper extremity, distal neurovascularly intact. Recommend follow-up with primary care physician if pain is not improving. Patient is aware of diagnosis, understands and agrees to treatment plan. Anticipatory guidance given. Patient agrees to follow-up as directed and is aware of reasons to seek care at the emergency department. Portions of this record may have been created with voice recognition software Imaging Data My impression: agree with radiologist Radiologist's impression: EXAMINATION: XR humerus LT DATE: 04/02/2024 13:55 INDICATION: Left upper arm pain. Fall. TECHNIQUE: 2 views of left humerus on 3 radiographs were obtained. COMPARISON: None. FINDINGS: Alignment is normal. No fracture. Joint spaces are normal. No elbow joint effusion. IMPRESSION: 1. Normal left humerus. Discharge Plan Discharge Clinical Impression: Strain of left upper arm, Fall due to ice or snow Patient Disposition: Home, Self-Care Condition: Stable Instructions: Shoulder Sprain (ED), Shoulder Immobilizer (ED) Additional Instructions: The x-ray of your left humerus was negative for fracture. Take ibuprofen every 6-8 hours as needed for pain. Elevate when at rest. Wear sling for 3-5 days for comfort. Remove several times during the day and do ahmrk-en-hedudl exercises. Do not wear to bed. May remove for showering. Follow-up with your primary care physician if pain is not improving. Patient Language: American Prescriptions: No Action famotidine 40 mg tablet 40 mg PO HS ondansetron 4 mg tablet,disintegrating 4 mg PO Q6H PRN (Reason: nausea and vomiting) 3 Days Qty: 12 0RF sertraline 25 mg tablet 25 mg DAILY omeprazole 20 mg capsule,delayed release(DR/EC) 20 mg PO DAILY Follow-up/Referrals: Wally,MD Marcelino [Primary Care Provider] - Stand Alone Forms: Work/School Release IP Time of Disposition: 14:19
== END 2024-04-02 14:21 | disposition home or self-care (01) ==
PROVIDERS: Emergency Provider Nurse Practitioner Family; PCP Family Medicine
DX: S46.912A Strain of unspecified muscle, fascia and tendon at shoulder and upper arm level, left arm, initial encounter (principal); I10 Essential (primary) hypertension; Z87.891 Personal history of nicotine dependence; W00.0XXA Fall on same level due to ice and snow, initial encounter; Y99.0 Civilian activity done for income or pay
CPT/HCPCS: 73060; 99213; A4565; G0463

== ENCOUNTER 2024-10-27 15:05 | Emergency (ER) | payer OTHER, SELFPAY ==
--- NOTE | 2024-10-27 15:07 | ED.SKABFB ---
HPI - Skin/Abscess/Foreign Bdy General Chief complaint: Wound/Laceration Stated complaint: Insect Sting Time Seen by Provider: 10/27/24 15:07 Source: patient Mode of arrival: ambulatory Limitations: no limitations History of Present Illness HPI narrative: Patient is a 34-year-old male that presents with 3-4 stings from yellow jackets on face. Happened approximately 1.5 hours prior to arrival. Patient has not taken anything for symptoms. Denies any difficulty breathing, swallowing or mouth swelling. Related Data Home Medications ?Medication ?Instructions ?Recorded ?Confirmed ?Last Taken ?Type omeprazole 20 mg capsule,delayed 20 mg PO DAILY 10/01/19 01/31/24 Unknown History release sertraline 25 mg tablet 25 mg DAILY 10/01/19 01/31/24 Unknown History famotidine 40 mg tablet 40 mg PO HS 06/04/22 01/31/24 Unknown History Allergies Allergy/AdvReac Type Severity Reaction Status Date / Time cefaclor Allergy Mild Hives Verified 10/27/24 15:17 Review of Systems Review of Systems: All systems reviewed & are unremarkable except as noted in HPI and below Constitutional: Constitutional: Denies body ache(s), Denies chills, Denies fatigue, Denies fever(s), Denies headache(s), Denies malaise and Denies weakness Eyes: Eyes: Denies blurry vision, Denies irritation and Denies loss of vision ENT: Denies otalgia, Denies headache(s), Denies nasal discharge, Denies sinus pain and Denies sore throat Cardiovascular: Cardiovascular: Denies chest pain, Denies irregular heart rhythm and Denies dyspnea Respiratory: Respiratory: Denies dyspnea Gastrointestinal: Gastrointestinal: Denies abdominal pain, Denies melena, Denies hematochezia, Denies diarrhea, Denies nausea and Denies vomiting Musculoskeletal: Musculoskeletal: Denies back pain, Denies myalgias and Denies arthralgias Integumentary/Breasts: Skin/Breast: Denies pruritus, Reports erythema and Denies rash Neurologic: Denies headache(s), Denies loss of vision and Denies weakness Psychiatric: Psychiatric: Reports no additional psychiatric complaints Endocrine: Endocrine: Denies fatigue [facility] Past Medical History Medical History Anxiety GERD (gastroesophageal reflux disease) Panic attacks Hypertension Surgical History Surgical History History of tonsillectomy Family History Family History Other High cholesterol Social History Social History Smoking status: Former smoker Tobacco type: e-cigarettes/vaping Alcohol intake: current Substance use type: marijuana Do You Feel Safe in your Home?: Yes Lack of Transportation: No Lack of Food: Never True Current Housing: I Have Housing Concerned About Future Housing: No Difficulty Paying Gas/Electric Bills: No Difficulty Paying for Meds: No Currently Unemployed: No Education: High School Diploma/GED Difficulty w/ Childcare or Family Care: No Gender identity (if verbalized by the patient): Male Comments At time of signature, agree with nursing past medical, surgical, social and family history. There is no relevant family history pertinent to the presenting complaint. Exam Const: General: cooperative, healthy appearing, comfortable, no acute distress and well nourished Nutritional Appearance: well nourished Orientation/consciousness: patient oriented x3 Limitations: no limitations HENMT: Head: normal to inspection, normocephalic and atraumatic Ears: hearing grossly normal bilaterally and external ears normal Face/Nose/Sinus: Normal external nose present, normal facial exam and face symmetric Face and sinus: normal facial exam and face symmetric Face images:  1. 1 cm area of erythema and tenderness on palpation. 2. 1 cm area of erythema and tenderness on palpation. 3. 1 cm area of erythema and tenderness on palpation. Mouth: Yes lip normal Eyes: General: appearance normal, both eyes and all related structures Alignment and Position: alignment normal and position normal Periorbital: periorbital findings normal Eyelids: eyelids normal Pupils: Equal, round and reactive pupils present EOM: EOMs intact bilaterally Neck: Neck: normal visual inspection, full ROM and supple Chest: Chest palpation & inspection: normal inspection of the chest Resp: Effort & Inspection: normal respiratory effort and able to speak in complete sentences Auscultation: clear to auscultation bilaterally Cardio: Rate: regular rate Rhythm: regular rhythm Heart sounds: S1 normal heart sound present and S2 normal heart sound present GI: Inspection: normal to inspection Skin: General skin exam: normal color and no rashes or lesions noted Neuro: General: patient oriented x3 and moves all extremities Cranial nerves: Yes Equal, round and reactive pupils present Speech: normal speech Gait exam (Neuro): Normal gait present Extrem: General: normal to inspection, full ROM and no edema Psych: Appearance: grossly normal and well kempt Mental Status: mental status grossly normal Speech and movement: Normal speech and movement present Affect: normal affect Attitude: cooperative Thought process: Normal thought process present Course Course Emergency Course: Patient is aware of diagnosis, understands and agrees to treatment plan. Anticipatory guidance given. Patient agrees to follow-up as directed and is aware of reasons to seek care at the emergency department. Portions of this record may have been created with voice recognition software Level of Care: Express Care Visit Vital Signs Vital signs: Reviewed MDM - Skin/Abscess/Foreign Bdy MDM Narrative Medical decision making narrative: Patient has 3 insect stings prominence of face with no warmth or induration. Patient was given 1 time dose of steroids. Pt well hydrated appearing, in no respiratory distress, hemodynamically stable. Recommend supportive care. The patient is stable at time of discharge the clinical impression was discussed and the patient was given the opportunity to ask questions, which were addressed as completely as possible given the information available at present. Anticipatory guidance and return to care precautions were discussed and the importance of primary care follow-up was stressed and encouraged. The patient voiced understanding of the plan, indications to return, and the need for follow-up. Exam findings show no acute concerns or changes Patient is appropriate for outpatient treatment and follow-up. Differential Diagnosis Differential diagnosis: Likely viral exanthem, herpes zoster, allergic reaction to drug, cellulitis and insect bites (stings) Medical Records Attestation: I reviewed the patient's medical records. Discharge Plan Discharge Clinical Impression: Accidental bee sting Patient Disposition: Home Condition: Stable Instructions: Insect Bite or Sting (ED) Additional Instructions: Seek Emergency Help If You Notice: ? Difficulty breathing or swallowing ? Swelling of the lips, tongue, or throat ? Hives over a large area ? Dizziness or fainting ? Nausea, vomiting, or a racing heart These may indicate anaphylaxis, a life-threatening allergic reaction. Call 911 or go to the ER immediately. For Less Severe Reactions (but with significant swelling): 1.?Antihistamines ? Diphenhydramine (Benadryl): 25?50 mg every 4?6 hours (adults) ? Non-drowsy alternatives: cetirizine (Zyrtec), loratadine (Claritin), fexofenadine (Megan) 2.?Cold Compress ? Apply a cold pack or cloth-wrapped ice to the area for 10?15 minutes at a time to reduce swelling and pain. 3.?Elevation ? Keep the head elevated, especially when lying down, to help reduce facial swelling. 4.?Pain Relief ? Tylenol 650-1000mg by mouth every 4-6 hours. Do not exceed 4000mg in 24 hours. ? Advil (Ibuprofen) 600 mg by mouth every 6 hours. Do not exceed 2400mg in 24 hours. 8 AM: Tylenol 11 AM: Ibuprofen 2 PM: Tylenol 5 PM: Ibuprofen 8 PM: Tylenol 11 PM: Ibuprofen 2 AM: Tylenol 5 AM: Ibuprofen 5.?Topical Corticosteroids ? Apply 1% hydrocortisone cream to the sting site (avoid near eyes or open skin). When to See a Doctor (even if not life-threatening): ? Swelling continues to worsen after 24 hours ? Sting is near the eye or airway ? Signs of infection develop (redness, warmth, pus) ? You?ve had allergic reactions to stings in the past Patient Language: Italian Prescriptions: No Action famotidine 40 mg tablet 40 mg PO HS sertraline 25 mg tablet 25 mg DAILY omeprazole 20 mg capsule,delayed release(DR/EC) 20 mg PO DAILY Follow-up/Referrals: Wally,MD Marcelino [Primary Care Provider] - 3 Days Time of Disposition: 15:49
[2024-10-27 15:12] VITALS: BP 125/65; PULSE 61; RESP 16; TEMP 36.3; O2SAT 98
[2024-10-27] MEDS: dexAMETHasone 10 MG/10 ML INTENSOL CONC (*BKC) PO (15:31)
== END 2024-10-27 15:52 | disposition home or self-care (01) ==
PROVIDERS: Emergency Provider Nurse Practitioner Family; PCP Family Medicine
DX: T63.461A Toxic effect of venom of wasps, accidental (unintentional), initial encounter (principal); I10 Essential (primary) hypertension; K21.9 Gastro-esophageal reflux disease without esophagitis; F41.9 Anxiety disorder, unspecified; Z87.891 Personal history of nicotine dependence
CPT/HCPCS: 99213; G0463; J8540

== ENCOUNTER 2024-11-16 14:15 | Emergency (ER) | payer OTHER, SELFPAY ==
[2024-11-16 14:32] VITALS: BP 124/73; PULSE 62; RESP 16; TEMP 36.6; O2SAT 97
[2024-11-16 14:52] VITALS: BP 116/61; PULSE 68; RESP 12; TEMP 36.4; O2SAT 100
[2024-11-16 14:57] VITALS: BP 116/61; PULSE 68; RESP 12; TEMP 36.4; O2SAT 100
--- NOTE | 2024-11-16 15:25 | ED_ITS ---
HPI - Dizziness General Chief Complaint: Dizziness Stated Complaint: nausea, dizzy Time Seen by Provider: 11/16/24 15:16 History of Present Illness HPI Narrative: This is a 34-year-old male with history of GERD, depression who presents to the ED for dizziness and nausea. Patient states that for the last day, he has been having intermittent dizziness. Patient works for [employer] and states that he was having difficulty driving due to this. 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 He has vomited 3 times. Denies any known sick contacts, cough, congestion, abdominal pain. Patient notes that he recently quit smoking 2 weeks ago. Related Data Home Medications ?Medication ?Instructions ?Recorded ?Confirmed ?Last Taken ?Type omeprazole 20 mg capsule,delayed 20 mg PO DAILY 01/31/24 Unknown History release sertraline 25 mg tablet 25 mg DAILY 10/01/19 4 Unknown History famotidine 40 mg tablet 40 mg PO HS 06/04/22 4 Unknown History Allergies Allergy/AdvReac Type Severity Reaction Status Date / Time cefaclor Allergy Mild Hives Verified 10/27/24 15:17 Review of Systems 2 Review of Systems: Gen.: Denies fevers or chills Eyes: Denies eye pain or visual change ENT: Denies congestion Respiratory: Denies shortness of breath or cough CV: Denies chest pain or palpitations GI: As per HPI denies burning, urgency, frequency or hematuria Musculoskeletal: Denies back pain or muscle pain Neuro: Denies numbness, tingling, weakness or focal weakness Skin: Denies rash Except as documented, all other systems reviewed and negative [facility] Past Medical History Medical History (Updated 11/16/24 @ 17:35 by Lit Lynn MD) Anxiety GERD (gastroesophageal reflux disease) Panic attacks Hypertension Surgical History Surgical History History of tonsillectomy Family History Family History Other High cholesterol Social History Social History Smoking status: Former smoker Tobacco type: e-cigarettes/vaping Alcohol intake: current Substance use type: marijuana Do You Feel Safe in your Home?: Yes Lack of Transportation: No Lack of Food: Never True Current Housing: I Have Housing Concerned About Future Housing: No Difficulty Paying Gas/Electric Bills: No Difficulty Paying for Meds: No Currently Unemployed: No Education: High School Diploma/GED Difficulty w/ Childcare or Family Care: No Gender identity (if verbalized by the patient): Male Exam 2 Narrative: APPEARANCE: No acute distress, nontoxic, resting in bed EYES: EOMI HEENT: Normocephalic, atraumatic, OMM. Rightward beating nystagmus. RESPIRATORY: No respiratory distress Clear to auscultation bilaterally with no rhonchi wheezing or rales. CARDIOVASCULAR: Regular rate and rhythm without murmurs rubs or gallops. ABDOMINAL: Soft, nontender, nondistended, no rebound or guarding MUSCULOSKELETAl: Moves all extremities. No clubbing, cyanosis or edema. NEURO: Awake and alert. Following commands, speech normal, no focal deficits SKIN:: Warm, dry. No rashes lesions or abrasions PSYCHIATRIC: Normal affect/mood, Course Vital Signs Vital signs: Vital Signs Temperature 97.8 F 11/16/24 14:32 Pulse Rate 62 11/16/24 14:32 Respiratory Rate 16 11/16/24 14:32 Blood Pressure 124/73 11/16/24 14:32 Pulse Oximetry 97 11/16/24 14:32 Oxygen Delivery Room Air 11/16/24 14:32 Temperature 97.6 F 11/16/24 14:57 Pulse Rate 67 11/16/24 17:10 Respiratory Rate 12 11/16/24 17:10 Blood Pressure 122/64 11/16/24 17:10 Pulse Oximetry 98 11/16/24 17:10 Oxygen Delivery Room Air 11/16/24 14:52 MDM - Dizziness MDM Narrative Medical decision making narrative: 34-year-old male who presented to the ED for dizziness and nausea. On initial evaluation, patient was in no acute distress, afebrile, hemodynamically stable. He does have rightward beating nystagmus. Heart and lungs were clear. Abdomen soft nontender. Suspect a BPPV versus vestibular neuritis. He was given meclizine and Zofran with significant improvement of symptoms. He will be given prescription for meclizine and Zofran. He was advised follow-up with his PCP next week for evaluation. Patient was agreeable to this plan. Given strict return precautions. Differential Diagnosis Differential diagnosis: Likely other (viral syndrome, BPPV, electrolyte abnormality, dehydration) Medical Records Attestation: I reviewed the patient's medical records. Lab Data Attestation: I reviewed the patient's lab results. 11/16/24 15:52 11/16/24 15:52 Labs: Lab Results 11/16/24 11/16/24 Range/Units 15:52 17:19 WBC 12.2 H (4.5-10.0) K/mm3 RBC 4.02 L (4.6-6.20) M/mm3 Hgb 11.9 L (14.0-18.0) g/dL Hct 36.5 L (42.0-52.0) % MCV 90.8 (80-100) fl MCH 29.6 (26-34) pg MCHC 32.6 (32-36) g/dl RDW 11.9 (11.5-14.5) % Plt Count 212 (150-375) k/mm3 MPV 9.4 (7.4-10.4) fl Immature Gran % (Auto) 0.3 (0-0.5) % Neut % (Auto) 84.7 H (45.5-73.1) % Lymph % (Auto) 11.9 L (18.3-44.2) % [place] % (Auto) 2.8 (2.6-8.5) % Eos % (Auto) 0.1 (0-4.4) % Baso % (Auto) 0.2 (0.2-1.2) % Lymph # (Auto) 1.45 (0.9-3.2) K/mm3 [place] # (Auto) 0.3 (0.1-0.6) K/mm3 Eos # (Auto) 0.0 (0-0.3) K/mm3 Baso # (Auto) 0.0 (0.0-0.1) K/mm3 Abs Immat Gran (auto) 0.04 H (0.00-0.031) K/mm3 Absolute Neuts (auto) 10.3 H (1.3-6.7) K/mm3 Absolute Nucleated RBC 0.000 (0.0-0.012) K/mm3 Nucleated RBC % 0.0 (0.0-0.2) % Sodium 138 (137-145) mmol/L Potassium 3.8 (3.4-5.0) mmol/L Chloride 103 (98-107) mmol/L Carbon Dioxide 26 (22-30) mmol/L Anion Gap 9 (4-12) mmol/L BUN 12 (9-20) mg/dL Creatinine 0.91 (0.7-1.3) mg/dL Estim Creat Clear Calc 125 ml/min Estimated GFR > 60 (59 - ) Glucose 112 H (65-110) mg/dL Calcium 9.3 (8.4-10.2) mg/dL Total Bilirubin 0.5 (0.2-1.3) mg/dL AST 33 (17-59) U/L ALT 30 (6-50) U/L Alkaline Phosphatase 73 (38-126) U/L Total Protein 8.0 (6.3-8.2) g/dL Albumin 4.6 (3.5-5.1) g/dL Influenza A (RT-PCR) Negative (Negative) Influenza B (RT-PCR) Negative (Negative) RSV (RT-PCR) Negative (Negative) SARS-CoV-2 RNA (RT-PCR) Negative (Negative) Discharge Plan Discharge Clinical Impression: Dizziness Patient Disposition: Home Condition: Stable Instructions: Antibiotic Form, Dizziness (ED) Additional Instructions: Take meclizine and zofran as prescribed. Follow up with your PCP in the next week for reevaluatoin. Return to the ED for new or worsening symptoms. Patient Language: Mongolian Prescriptions: New meclizine 25 mg tablet 25 mg PO BID PRN (Reason: dizziness) Qty: 14 0RF ondansetron 4 mg tablet,disintegrating 4 mg PO Q8H PRN (Reason: nausea and vomiting) Qty: 14 0RF No Action famotidine 40 mg tablet 40 mg PO HS sertraline 25 mg tablet 25 mg DAILY omeprazole 20 mg capsule,delayed release(DR/EC) 20 mg PO DAILY Follow-up/Referrals: Wally,MD Marcelino [Primary Care Provider, Unknown] Stand Alone Forms: Work/School Release IP
[2024-11-16] MEDS: SODIUM CHLORIDE 0.9% IV 1,000 ML 999 ML IV CONT (15:48)
[2024-11-16] MEDS: MECLIZINE HCL 25 MG TABLET PO (15:49)
[2024-11-16] MEDS: ONDANSETRON INJ 4 MG/2 ML VIAL IV PUSH (15:49)
[2024-11-16 15:58] LABS: Hematocrit 36.5 % (42.0-52.0); Hemoglobin 11.9 g/dL (14.0-18.0); Immature Granulocyte Percent A 0.3 % (0-0.5); Lymphocytes Absolute Auto 1.45 K/mm3 (0.9-3.2); Mean Corpuscular HGB Conc 32.6 g/dl (32-36); Mean Corpuscular Hemoglobin 29.6 pg (26-34); Mean Corpuscular Volume 90.8 fl (80-100); Nucleated Red Blood Cells Absolute Auto 0.000 K/mm3 (0.0-0.012); Nucleated Red Blood Cells Perc 0.0 % (0.0-0.2); Platelet Count Result 212 k/mm3 (150-375); Red Blood Count 4.02 M/mm3 (4.6-6.20); White Blood Count 12.2 K/mm3 (4.5-10.0)
[2024-11-16 16:12] LABS: Alanine Aminotransferase 30 U/L (6-50); Albumin Level 4.6 g/dL (3.5-5.1); Alkaline Phosphatase 73 U/L (38-126); Anion Gap 9 mmol/L (4-12); Aspartate Amino Transferase 33 U/L (17-59); Bilirubin,Total 0.5 mg/dL (0.2-1.3); Blood Urea Nitrogen 12 mg/dL (9-20); Calcium 9.3 mg/dL (8.4-10.2); Carbon Dioxide 26 mmol/L (22-30); Chloride 103 mmol/L (98-107); Estimated CRCL calculation 125 ml/min; Estimated Glomerular Filt Rate > 60; Glucose 112 mg/dL (65-110); Potassium 3.8 mmol/L (3.4-5.0); Sodium 138 mmol/L (137-145); Total Protein 8.0 g/dL (6.3-8.2)
[2024-11-16 16:16] VITALS: BP 124/70; PULSE 60; RESP 19; O2SAT 100
[2024-11-16 17:10] VITALS: BP 122/64; PULSE 67; RESP 12; O2SAT 98
[2024-11-16 18:02] LABS: Influenza A QL RT-PCR Negative (Negative); Influenza B QL RT-PCR Negative (Negative); RSV RNA, RT-PCR Negative (Negative); SARS-CoV-2 RNA PCR Negative (Negative)
== END 2024-11-16 18:33 | disposition home or self-care (01) ==
PROVIDERS: Emergency Provider Student in an Organized Health Care Education/Training Program; PCP Family Medicine
DX: R42 Dizziness and giddiness (principal); Z20.822 Contact with and (suspected) exposure to COVID-19; F41.9 Anxiety disorder, unspecified; K21.9 Gastro-esophageal reflux disease without esophagitis; I10 Essential (primary) hypertension
CPT/HCPCS: 36415; 80053; 85025; 87637; 96361; 96374; 99284; A9270; J2405; J7030

== ENCOUNTER 2024-11-29 13:18 | Outpatient (CLI) | payer OTHER, SELFPAY ==
--- NOTE | ~2024-11-29 | XR_ITS ---
EXAMINATION: XR chest 2V, 11/29/2024 13:30 CDT HISTORY: Vaping Contact with and exposure to other hazardous COMPARISON: No comparisons available. Technique: 2 views obtained. Findings: The lungs are clear, no effusion. No pneumothorax. Heart is normal size. Mediastinal and hilar contours are within normal limits. Bony thorax no acute abnormality. Impression: No acute cardiopulmonary abnormality. Reviewed, dictated and finalized at location A. Impression: No acute cardiopulmonary abnormality.
== END 2024-11-29 13:19 | disposition home or self-care (01) ==
PROVIDERS: PCP Family Medicine; Visit Provider Family Medicine
DX: Z77.29 Contact with and (suspected) exposure to other hazardous substances (principal)
CPT/HCPCS: 71046